=== PATIENT | female | born 1960 | race Caucasian/White ===

== ENCOUNTER 2018-05-03 07:09 | Emergency (ER) | payer OTHER ==
[2018-05-03] MEDS ORDERED: diazePAM 5 MG TABLET PO ONE (07:19)
[2018-05-03] MEDS ORDERED: KETOROLAC TROMETHAMINE 30 MG/1 ML VIAL IM ONE (07:19)
--- NOTE | 2018-05-03 07:19 | PDOC ---
History of Present Illness - General Chief Complaint: Pain Stated Complaint: LOWER BACK PAIN Time Seen by Provider: 05/03/18 07:17 History Source: Patient Exam Limitations: No Limitations - History of Present Illness Initial Comments: 05/03/18 07:54 57 yo F with h/o htn hypothyroid here with c/o low renée pain h/o scoliosis. had a slip and fall 3 days ago while walking. landed on her bottom. the worked at [employer] all day on day following. c/o sharp shooting pain, radiation down left leg. has had back pain in past. no f/c no urinary sxs. no new weakness or numbness. worse with bending. did have associated n/v secondary to pain has had kidney stones in the past, not similar to stone pain. Past History - Past Medical History Allergies/Adverse Reactions: Allergies Allergy/AdvReac Type Severity Reaction Status Date / Time No Known Allergies Allergy Verified 05/03/18 07:11 Home Medications: Ambulatory Orders Diazepam [Valium] 5 mg PO Q8H PRN #10 tablet MDD 3 05/03/18 Levothyroxine [Synthroid -] 75 mcg PO DAILY 05/03/18 Metoprolol Succinate [Toprol Xl] 100 mg PO DAILY 05/03/18 Oxycodone HCl/Acetaminophen [Percocet 5-325 mg Tablet] 1 tab PO Q4H PRN #10 tablet MDD 6 05/03/18 Pantoprazole Sodium [Protonix] 40 mg PO DAILY 05/03/18 Review of Systems - Review of Systems Constitutional: No: Chills, Diaphoresis, Fever HEENTM: No: Eye Pain Respiratory: No: Cough, Shortness of Breath Cardiac (ROS): No: Chest Pain Musculoskeletal: Yes: Back Pain All Other Systems: Reviewed and Negative *Physical Exam - Physical Exam General Appearance: Yes: Appropriately Dressed Neck: positive: Trachea midline Respiratory/Chest: positive: Lungs Clear, Normal Breath Sounds Cardiovascular: positive: Regular Rhythm, Regular Rate, S1, S2 Gastrointestinal/Abdominal: positive: Normal Bowel Sounds. negative: Tender Musculoskeletal: positive: Normal Inspection, Other (lower paraspinal muscle spasm lumbosacral region, no midline spinal v tenderness. ). negative: Vertebral Tenderness Extremity: positive: Normal Capillary Refill Integumentary: positive: Normal Color, Dry, Warm Neurologic: positive: Fully Oriented, Alert Medical Decision Making - Medical Decision Making 05/03/18 07:17 57 yo F with low back pain . worse with movememt. normal nuerological exam. plan nsaids, muscle relaxers reassess. 05/03/18 07:59 05/03/18 08:27 Patient feeling much improved following Percocet and Valium and Toradol. An bleeding without difficulty. X-rays are negative for acute fracture does show severe scoliosis. Patient given outpatient referral for neurologist Dr. Ashlie Schofield and referred back to her primary physician Dr. [facility] prescription for Percocet total of 10 and Valium total 10 told to return for any new weakness numbness or tingling given worked up for 3 days *DC/Admit/Observation/Transfer Diagnosis at time of Disposition: Low back strain - Discharge Dispostion Disposition: HOME Condition at time of disposition: Improved - Prescriptions Prescriptions: Diazepam [Valium] 5 mg PO Q8H PRN #10 tablet MDD 3 PRN Reason: Pain Oxycodone HCl/Acetaminophen [Percocet 5-325 mg Tablet] 1 tab PO Q4H PRN #10 tablet MDD 6 PRN Reason: Pain - Referrals Referrals: Edwar Flores MD [Staff Physician] - Asad Ortiz MD [Staff Physician] - - Patient Instructions Printed Discharge Instructions: Back Pain (Alternative Therapy), Scoliosis- Adult Additional Instructions: He can take naproxen 500 mg up to twice daily for pain. Take Valium 5 mg every 8 hours as needed for muscle spasm. Take Percocet 1 every 4-6 hours as needed for severe pain not relieved by naproxen return for any new weakness numbness or tingling. He should also follow up with a spine surgeon see referral information for Dr. Flores and referral information for a neurologist Dr. Ortiz do not drink alcohol or drive after taking Valium. Return for any problems or concerns - Post Discharge Activity Forms/Work/School Notes: Back to Work
[2018-05-03 07:22] VITALS: BP 93/63; PULSE 94; TEMP 98.8; BMI 26.2
[2018-05-03] MEDS ORDERED: KETOROLAC TROMETHAMINE 30 MG/1 ML VIAL ONE (07:24)
[2018-05-03] MEDS ORDERED: diazePAM 5 MG TABLET ONE (07:24)
== END 2018-05-03 08:51 | disposition home or self-care (01) ==
LOC: FER 07:09
PROC: 3E0233Z Introduction of Anti-inflammatory into Muscle, Percutaneous Approach (ICD-10-PCS; principal; 2018-05-03)
DX: S39.012A Strain of muscle, fascia and tendon of lower back, initial encounter (principal); X58.XXXA Exposure to other specified factors, initial encounter; Y93.89 Activity, other specified; Y92.9 Unspecified place or not applicable; I10 Essential (primary) hypertension; E03.9 Hypothyroidism, unspecified; M41.9 Scoliosis, unspecified; G89.29 Other chronic pain
CPT/HCPCS: 72100-TC-FY; 99282-25

== ENCOUNTER 2020-06-13 05:07 | Day surgery (SDC) | payer OTHER ==
[2020-06-12 13:58] VITALS: BMI 21.2
--- OUTSIDE RECORDS SUMMARY | 2020-06-13 05:13 | XMS ---
:1960 [facility] Care Team Providers Name Role Phone Roni Warner MD Unavailable Unavailable Androne, Praful C Unavailable Androne, C Unavailable Androne, C Unavailable Androne, C Unavailable Androne, C Unavailable Androne, C Unavailable Androne, C Unavailable Androne, C Unavailable MD Meghna Unavailable Unavailable Re-disclosure Warning The records that you are about to access may contain information from federally- assisted alcohol or drug abuse programs. If such information is present, then the following federally mandated warning applies: This information has been disclosed to you from records protected by federal confidentiality rules (42 CFR part 2). The federal rules prohibit you from making any further disclosure of this information unless further disclosure is expressly permitted by the written consent of the person to whom it pertains or as otherwise permitted by 42 CFR part 2. A general authorization for the release of medical or other information is NOT sufficient for this purpose. The Federal rules restrict any use of the information to criminally investigate or prosecute any alcohol or drug abuse patient.The records that you are about to access may contain highly sensitive health information, the redisclosure of which is protected by Article 27-F of the [facility] Public Health law. If you continue you may haveaccess to information: Regarding HIV / AIDS; Provided by facilities licensed or operated by the [facility] Office of Mental Health; or Provided by the [facility] Office for People With Developmental Disabilities. If such information is present, then the following [facility] mandated warning applies: This information has been disclosed to you from confidential records which are protected by state law. State law prohibits you from making any further disclosure of this information without the specific written consent of the person to whom it pertains, or as otherwise permitted by law. Any unauthorized further disclosure in violation of state law may result in a fine or retirement sentence or both. A general authorization for the release of medical or other information is NOT sufficient authorization for further disclosure. Advance Directives Directive Description Technical Supervisor Safekeeping Clerk Status Observation Data S ource(s) Description Advance No completed [facility] Advance No completed [facility] Allergies and Adverse Reactions Type Description Substance Reaction Status Data Source(s ) Drug allergy No Known Allergies No Known NO KNOWN ALLERG Jorge Franklin Allergies [place] [facility] Encounters Encounter Providers Location Date Indications Data Source(s ) Attender: Praful 06/07/2020 [facility] ([facility] 12:00:00 AM EDT [facility]) Office Attender: Praful Arizmendi 06/07/2020 12:00:00 AM EDT [facility] ([facility] Office Attender: Praful Arizmendi 06/07/2020 12:00:00 AM EDT [facility] ([facility] Office Attender: Praful Arizmendi 06/07/2020 12:00:00 AM EDT [facility] ([facility] Office Attender: Praful Arizmendi 06/07/2020 12:00:00 AM EDT [facility] ([facility]) Office Outpatient Attender: Roni 10/25/2019 01:30:00 GANGLION O F RIGHT Jorge Warner MD PM EST - 10/25/2019 [facility] 09:16:00 AM EST GANGLION OF RIGHT WRIST Patient discharged. Outpatient Attender: Stacey 10/21/2019 01:53:00 10/25 SHAYY Coffman MD PM EST REMOVAL RT Hospital GANGLION CYST 10/25 DANAE REMOVAL RT GANGLION CYST Functional Status Immunizations Vaccine Date Status Description Data Source(s) New in 2011. IIV4 07/28/2018 12:00:00 completed [facility] ([facility]) Medications Medication Brand Start Product Dose Route Administrative Pharmacy [facility] Indications Reaction Description Data Name Date Form Instructions Instructions Source(s) atorvastati ATORVA 05/30/ TABLET 30 complet ATOR VASTATIN [facility] (St n 40 MG STATIN 2019 ed [facility] Oral Tablet :03672 12:00: [facility]i [facility], ATORVASTATI 1 00 AM PC) N:712079 EDT thyroid THYROI 05/30/ TABLET 180 complet THYROID [facility] (St (FDC) 65 MG D 2019 ed DESICCATED Angella [facility] Oral Tablet DESICC 12:00: [facility]i cliff, THYROID ATED:3 00 AM PC) DESICCATED: 21755 EDT 960551 24 HR METOPR 05/30/ TABLET, 30 complet METOPROLO L [facility] (St metoprolol OLOL:8 2019 EXTENDED ed Dane n's succinate 22036 12:00: RELEASE Medi cliff, 100 MG 00 AM PC) Extended EDT Release Oral Tablet METOPROLOL: 629168 Sucralfate CARAFA 04/03/ TABLET 90 complet CARAF ATE [facility] (St 1000 MG TE:208 2019 ed [facility] Oral Tablet 097 12:00: Medica l, [Carafate] 00 AM PC) CARAFATE:20 EDT 8097 lamotrigine LAMOTR 02/02/ TABLET 60 complet LAMO TRIGINE [facility] (St 25 MG Oral IGINE: 2019 ed [facility] Tablet 876641 12:00: Medical, LAMOTRIGINE 00 AM PC) :612068 EDT liothyronin LIOTHY /08/ TABLET 90 complet LIOT HYRONINE [facility] (St e sodium RONINE 2019 ed [facility] 0.05 MG :84896 12:00: Medical, Oral Tablet 3 00 AM PC) LIOTHYRONIN EDT E:[id number] Glucosamine CAPSULE ORAL active [facility] Sulfate/[facility] [place] 250-250 Mg Hospital Cap* Sucralfate Sucral TABLET 2 g ORAL active Whi te 1000 MG fate [place] Oral Tablet Hospital [Carafate] Ross-3-Aci CAPSULE ORAL active Whi te d Ethyl [place] atorvastati Atorva TABLET 40 mg ORAL active W jeanne n 40 MG statin [place] Oral Tablet [facility] [Lipitor] m Atorvastati n Calcium thyroid Thyroi TABLET 1 ORAL active [facility] (FDC) 130 d,Pork {Caps [place] MG Oral ule} Hospital Tablet [Nature-Thr oid] Thyroid,Por k lamotrigine Lamotr TABLET 50 mg ORAL active W jeanne 25 MG Oral igine [place] Tablet Hospital [Lamictal] Lamotrigine Ascorbic Ascorb TABLET ORAL active [facility] Acid 500 MG ic [place] Oral Tablet Acid Hospital liothyronin Liothy TABLET 50 ug ORAL active W jeanne e sodium ronine [place] 0.05 MG Sodium Hospital Oral Tablet [Cytomel] Liothyronin e Sodium 24 HR Metopr CONTROLL 100 ORAL active White metoprolol olol ED mg [place] succinate Succin RELEASE Hospi sveta 100 MG ate TABLET Extended Release Oral Tablet [Toprol] Metoprolol Succinate Insurance Providers Payer name Policy type Policy ID Covered Covered libertarian's Policy P vilma / Coverage libertarian ID relationship to Hussein Inf ormation type hussein HIP MEDICAID [id number] SP [id number] [place] [id number] 1 [id number] [facility] [id number] HIP PAULA [id number] PT [id number] [id number] PT AEN [id number] [facility] [id number] PT AEN [id number] HIP MEDICAID [id number] SP [id number] Problems, Conditions, and Diagnoses Code Display Name Description Problem Type Effective Data Sour ce(s) Dates M21.611 Bunion of right BUNION OF RIGHT Problem 06/07/2020 MEDG EN (St foot FOOT 12:00:00 AM [facility], ) Z01.818 Encounter for other ENCOUNTER FOR Problem 06/07/2020 ME D[facility] (St preprocedural OTHER 12:00:00 AM [facility] examination PREPROCEDURAL EDT Medical, P C) EXAMINATION N20.0 Calculus of kidney CALCULUS OF KIDNEY Problem 0 MED[facility] (St 12:00:00 AM [facility] ) N23 Unspecified renal UNSPECIFIED RENAL Problem 01/02/2020 [facility] (St colic COLIC 12:00:00 AM [facility], ) K21.9 Gastro-esophageal GASTRO-ESOPHAGEAL Problem 07/28/2018 [facility] (St reflux disease REFLUX DISEASE 12:00:00 AM [facility] without esophagitis WITHOUT EDT Medic al, ) ESOPHAGITIS E78.5 Hyperlipidemia, HYPERLIPIDEMIA, Problem 09/30/2017 MEDG EN (St unspecified UNSPECIFIED 12:00:00 AM [facility], ) G43.909 Migraine, MIGRAINE, Problem 09/30/2017 MED[facility] (St unspecified, not UNSPECIFIED, NOT 12:00:00 AM [facility] intractable, INTRACTABLE, EST Medical, P C) without status WITHOUT STATUS migrainosus MIGRAINOSUS F31.9 Bipolar disorder, BIPOLAR DISORDER, Problem 09/30/2017 MED[facility] (St unspecified UNSPECIFIED 12:00:00 AM [facility], ) I10 Essential (primary) ESSENTIAL Problem 09/30/2017 MEDGE N (St hypertension (PRIMARY) 12:00:00 AM [facility] HYPERTENSION [facility], ) E03.9 Hypothyroidism, HYPOTHYROIDISM, Problem 09/30/2017 MEDG EN (St unspecified UNSPECIFIED 12:00:00 AM [facility], ) Surgeries/Procedures Procedure Description Date Indications Data Source(s) Documentation of current 06/07/2020 [facility] ([facility] medications (procedure) 12:00:00 AM [facility], ) EDT Documentation of current 06/07/2020 [facility] ([facility] medications (procedure) 12:00:00 AM [facility], ) EDT Documentation of current 06/07/2020 [facility] ([facility] medications (procedure) 12:00:00 AM [facility], ) EDT Documentation of current 06/07/2020 [facility] ([facility] medications (procedure) 12:00:00 AM [facility], ) EDT OFFICE OUTPATIENT VISIT 25 06/07/2020 M EDGEN ([facility] MINUTES 12:00:00 AM Medical, PC) EDT ECG ROUTINE ECG W/LEAST 12 LDS 06/07/2020 [facility] ([facility] W/I&R 12:00:00 AM Medical, PC) EDT Documentation of current 01/02/2020 MED [facility] ([facility] medications (procedure) 12:00:00 AM [facility] ) EDT Documentation of current 01/02/2020 MED [facility] ([facility] medications (procedure) 12:00:00 AM [facility] ) EDT Documentation of current 01/02/2020 [facility] ([facility] medications (procedure) 12:00:00 AM [facility] ) EDT Documentation of current 01/02/2020 [facility] ([facility] medications (procedure) 12:00:00 AM [facility] ) EDT PHYSICIAN TELEPHONE EVALUATION 01/02/2020 [facility] ([facility] 11-20 MIN 12:00:00 AM Medical, PC) EDT Oxygen therapy (procedure) 10/25/2019 W jeanne [place] 12:00:00 AM Hospital EST Electrocardiographic procedure 10/21/2019 [place] (procedure) 12:00:00 AM Hospital EST Electrocardiogram tracing 10/21/2019 [facility] [place] 12:00:00 AM Hospital EST Office/outpatient visit est 10/21/2019 [place] 12:00:00 AM Hospital EST Documentation of current 10/11/2019 MED [facility] ([facility] medications (procedure) 12:00:00 AM [facility] ) EST Documentation of current 10/11/2019 [facility] ([facility] medications (procedure) 12:00:00 AM [facility] ) EST Documentation of current 10/11/2019 [facility] ([facility] medications (procedure) 12:00:00 AM [facility] ) EST Documentation of current 10/11/2019 [facility] ([facility] medications (procedure) 12:00:00 AM [facility] ) EST Documentation of current 10/11/2019 [facility] ([facility] medications (procedure) 12:00:00 AM [facility] ) EST Documentation of current 10/11/2019 [facility] ([facility] medications (procedure) 12:00:00 AM [facility] ) EST Documentation of current 10/11/2019 [facility] ([facility] medications (procedure) 12:00:00 AM [facility], PC) EST Documentation of current 10/11/2019 [facility] ([facility] medications (procedure) 12:00:00 AM [facility], PC) EST Documentation of current 10/11/2019 [facility] ([facility] medications (procedure) 12:00:00 AM [facility], PC) EST Documentation of current 10/11/2019 [facility] ([facility] medications (procedure) 12:00:00 AM [facility], PC) EST Documentation of current 10/11/2019 [facility] ([facility] medications (procedure) 12:00:00 AM [facility], PC) EST Documentation of current 10/11/2019 [facility] ([facility] medications (procedure) 12:00:00 AM [facility], PC) EST Documentation of current 10/11/2019 [facility] ([facility] medications (procedure) 12:00:00 AM [facility], PC) EST Documentation of current 10/11/2019 [facility] ([facility] medications (procedure) 12:00:00 AM [facility], PC) EST Documentation of current 10/11/2019 [facility] ([facility] medications (procedure) 12:00:00 AM [facility], PC) EST Documentation of current 10/11/2019 [facility] ([facility] medications (procedure) 12:00:00 AM [facility], PC) EST Documentation of current 10/11/2019 [facility] ([facility] medications (procedure) 12:00:00 AM [facility], PC) EST Documentation of current 10/11/2019 [facility] ([facility] medications (procedure) 12:00:00 AM [facility], PC) EST Documentation of current 10/11/2019 [facility] ([facility] medications (procedure) 12:00:00 AM [facility], PC) EST Documentation of current 10/11/2019 [facility] ([facility] medications (procedure) 12:00:00 AM [facility], PC) EST OFFICE OUTPATIENT VISIT 15 10/11/2019 Omero BLEDSOE ([facility] MINUTES 12:00:00 AM [facility], ) EST Documentation of current 02/03/2019 MED [facility] ([facility] medications (procedure) 12:00:00 AM Medi cliff, PC) EDT Documentation of current 02/03/2019 [facility] ([facility] medications (procedure) 12:00:00 AM [facility], ) EDT Documentation of current 02/03/2019 [facility] ([facility] medications (procedure) 12:00:00 AM [facility], ) EDT Documentation of current 02/03/2019 [facility] ([facility] medications (procedure) 12:00:00 AM [facility], ) EDT Documentation of current 02/03/2019 [facility] ([facility] medications (procedure) 12:00:00 AM [facility], ) EDT Documentation of current 02/03/2019 [facility] ([facility] medications (procedure) 12:00:00 AM [facility], ) EDT OFFICE OUTPATIENT VISIT 25 02/03/2019 Omero BLEDSOE ([facility] MINUTES 12:00:00 AM [facility], ) EDT Documentation of current 07/28/2018 [facility] ([facility] medications (procedure) 12:00:00 AM [facility], ) EDT Documentation of current 07/28/2018 [facility] ([facility] medications (procedure) 12:00:00 AM [facility], ) EDT Documentation of current 07/28/2018 [facility] ([facility] medications (procedure) 12:00:00 AM [facility], ) EDT OFFICE OUTPATIENT VISIT 15 07/28/2018 Omero BLEDSOE ([facility] MINUTES 12:00:00 AM Medical, ) EDT INFLUENZA VACCINE 07/28/2018 [facility] ([facility] 12:00:00 AM Medical, PC) EDT IMADM PRQ ID SUBQ/IM NJXS 1 07/28/2018 [facility] ([facility] VACCINE 12:00:00 AM Medical, ) EDT Documentation of current 03/03/2018 [facility] ([facility] medications (procedure) 12:00:00 AM [facility], ) EDT Documentation of current 03/03/2018 [facility] ([facility] medications (procedure) 12:00:00 AM [facility], ) EDT OFFICE OUTPATIENT VISIT 15 03/03/2018 Omero RAKAN ([facility] MINUTES 12:00:00 AM Medical, PC) EDT Documentation of current 09/30/2017 [facility] ([facility] medications (procedure) 12:00:00 AM [facility], ) EST Documentation of current 09/30/2017 [facility] ([facility] medications (procedure) 12:00:00 AM [facility], ) EST Documentation of current 09/30/2017 [facility] ([facility] medications (procedure) 12:00:00 AM [facility]i [facility], PC) EST OFFICE OUTPATIENT VISIT 15 09/30/2017 Omero BLEDSOE ([facility] MINUTES 12:00:00 AM Medical, PC) EST Colonoscopy (procedure) 06/28/2017 [facility] EN ([facility] 12:00:00 AM Medical, ) EDT Mammogram (procedure) 05/15/2017 [facility] ([facility] 12:00:00 AM Medical, ) EDT Results ID Date Data Source [id number] 06/08/2020 02:25:00 PM EDT [facility] Name Value Range Interpretation Description Data Sup porting Code Source(s) Document(s ) SARS [facility] coronavirus 2 RNA This lab was ordered by [facility] and reported by [facility]. Procedure Social History Code Duration Value Status Description Data Source(s ) Smoking 06/07/2020 Marital Status completed Marital Status MED[facility] (St 12:00:00 AM [facility], EDT Members 3 Lives Members 3 Lives PC) Independently Yes Independently Yes Number of Children Number of Childre n 2 sons Occupation 2 sons Occupation nurse Tobacco nurse Tobacco Status: Former Status: Former smoker Tobacco smoker Tobacco details: details: Cigarettes Smoking Cigarettes Smokin g History: 10-15 History: 10-15 Years Daily Years Daily Smokin Pack Smokin Pack Smoking Stop Date: Smoking Stop Date : 2015..2015 Diet and Exercise Well Balanced Diet Daily or Most days Exercise Frequency Other (to start) Alcohol Use Alcohol Use None Substance Use Substance Use Denies Use Mental Health History Mental History Other (bipolar, highly functional) Sexual History Currently sexually active No Sees GI Dr. Torrey Quan for chronic heartburn Smoking 06/07/2020 Former smoker completed Former smoker [facility] ( St 12:00:00 AM [facility] Smoking Unknown if ever completed Unknown if ever [facility] [place] smoked smoked Hospital Vital Signs ID Date Data Source UNK Name Value Range Interpretation Code Description Data Source(s) Heart rate 72 /min 72 /min [facility] ([facility] , ) Respiratory rate 14 /min 14 /min [facility] ( [facility] , ) Body mass index 22.3 kg/m2 22.3 kg/m2 [facility] (S t (BMI) [Ratio] [facility], ) Diastolic blood 90 mm[Hg] 90 mm[Hg] [facility] (S t pressure [facility] [place]) Systolic blood 132 mm[Hg] 132 mm[Hg] [facility] ([facility]) Body weight 126 lb 126 lb [facility] Body height [address] [facility] ([facility]) Diastolic blood 63 mm[Hg] 63 mm[Hg] [facility] Systolic blood 97 mm[Hg] 97 mm[Hg] [facility] Respiratory rate 16 /min 16 /min [facility] Heart rate 52 /min 52 /min [facility] Body temperature 36.13536 36.69447 [facility] Body temperature 98.3 [degF] 98.3 [degF] [facility] Body mass index 23.0 kg/m2 23.0 kg/m2 [facility] (BMI) [Ratio] Hospital Body weight 130 [lb_av] 130 [lb_av] [facility] Heart rate 66 /min 66 /min [facility] Respiratory rate 14 /min 14 /min [facility] Body temperature 97.3 F 97.3 F [facility] Inhaled oxygen 97 % 97 % [facility] ([facility], ) Body mass index 22.3 kg/m2 22.3 kg/m2 MED[facility] (S t (BMI) [Ratio] [facility], ) Diastolic blood 62 mm[Hg] 62 mm[Hg] [facility] (S t pressure [facility] [place]) Systolic blood 108 mm[Hg] 108 mm[Hg] [facility] ([facility]) Body weight 129 lb 129 lb [facility] ([facility]) Body height 63.75 in 63.75 in [facility] Heart rate 82 /min 82 /min [facility] ([facility]) Respiratory rate 15 /min 15 /min [facility] ( [facility]) Body mass index 23.9 kg/m2 23.9 kg/m2 [facility] (S t (BMI) [Ratio] [facility], ) Diastolic blood 72 mm[Hg] 72 mm[Hg] [facility] (S t pressure [facility] , ) Systolic blood 140 mm[Hg] 140 mm[Hg] [facility] ([facility] , ) Body weight 138 lb 138 lb [facility] ([facility]) Body height 63.75 in 63.75 in [facility] ([facility]) Heart rate 82 /min 82 /min [facility] ([facility]) Respiratory rate 16 /min 16 /min [facility] ( [facility]) Body mass index 24.4 kg/m2 24.4 kg/m2 MED[facility] (S t (BMI) [Ratio] [facility], ) Diastolic blood 84 mm[Hg] 84 mm[Hg] [facility] (S t pressure [facility] , ) Systolic blood 128 mm[Hg] 128 mm[Hg] [facility] ([facility] , ) Body weight 141 lb 141 lb [facility] ([facility]) Body height 63.75 in 63.75 in [facility] ([facility]) Heart rate 64 /min 64 /min [facility] ([facility]) Respiratory rate 16 /min 16 /min [facility] ( [facility]) Body mass index 24.6 kg/m2 24.6 kg/m2 [facility] (S t (BMI) [Ratio] [facility], ) Diastolic blood 62 mm[Hg] 62 mm[Hg] [facility] (S t pressure [facility] , ) Systolic blood 108 mm[Hg] 108 mm[Hg] [facility] ([facility] , ) Body weight 142 lb 142 lb [facility] ([facility]) Body height 63.75 in 63.75 in [facility] ([facility]) Heart rate 82 /min 82 /min [facility] ([facility]) Respiratory rate 15 /min 15 /min [facility] ( [facility]) Body mass index 26.1 kg/m2 26.1 kg/m2 [facility] (S t (BMI) [Ratio] [facility], ) Diastolic blood 82 mm[Hg] 82 mm[Hg] [facility] (S t pressure [facility] , ) Systolic blood 126 mm[Hg] 126 mm[Hg] [facility] ([facility] , ) Body weight [address] [facility] ([facility] , ) Body height 63.[address] [facility] ([facility] , )
[2020-06-13] MEDS ORDERED: BUPIVACAINE HCL 100 ML ONE (11:14)
[2020-06-13] MEDS ORDERED: LIDOCAINE HCL 1%, 10 MG/ML (20ML VIAL) ONE (11:14)
[2020-06-13] MEDS ORDERED: DEXAMETHASONE SOD PHOSPHATE 4 MG/1 ML VIAL ONE (11:14)
[2020-06-13] MEDS ORDERED: PROPOFOL 20 ML ONE ×2 (11:38)
[2020-06-13] MEDS ORDERED: MIDAZOLAM HCL 2 MG/2 ML SINGLE DOSE VIAL ONE (11:38)
[2020-06-13] MEDS ORDERED: ceFAZolin SODIUM 1 GM VIAL IVPB ONE (12:15)
[2020-06-13 14:22] VITALS: BP 134/89; PULSE 86; TEMP 97.5
--- NOTE | 2020-06-15 11:49 | PATH ---
Surgical Pathology Report Patient Name: LISA BINGHAM [facility]. Rec. #: [id number] /Age/Gender: 1960 (Age: 59) / F Account: [id number] Location: [facility] SUR[facility] Taken: 06/13/2020 Received: 06/14/2020 Reported: 06/15/2020 Physicians: Jordan Duenas DPM Specimen(s) Received BONE FROM RIGHT FOOT Clinical History Bunion right foot Final Diagnosis BONE, FOOT, RIGHT, JB BUNIECTOMY: BONE WITH FATTY MARROW AND SYNOVIUM. Electronically Signed By Marysol Delong M.D. Gross Description Received in formalin labeled "bone from right foot" regular fragments of white-villalobos measuring 1.8 x 1 x 0.4 and 2.2 x 1.8 x 0.2 cm. Computer Discovery Teacher sections are submitted after decalcification one cassette. MLSZ/06/14/2020 sanml/06/14/2020
== END 2020-06-13 14:45 | disposition home or self-care (01) ==
LOC: JASU-SURG 05:07
PROVIDERS: ATTEND Podiatrist
PROC: 0QBQ0ZZ Excision of Right Toe Phalanx, Open Approach (ICD-10-PCS; principal; 2020-06-13 12:00)
PROC: 0QBN0ZZ Excision of Right Metatarsal, Open Approach (ICD-10-PCS; 2020-06-13 12:00)
DX: M20.11 Hallux valgus (acquired), right foot (principal); M21.611 Bunion of right foot
CPT/HCPCS: 88304-TC; 88311-TC

== ENCOUNTER 2021-06-13 19:52 | Emergency (ER) | payer OTHER ==
[2021-06-13 20:07] VITALS: PULSE 104; TEMP 97.9; BMI 21.0
[2021-06-13] MEDS ORDERED: SUMATRIPTAN SUCCINATE 6 MG/0.5 ML VIAL ONE (20:27)
[2021-06-13] MEDS ORDERED: METOCLOPRAMIDE HCL 10 MG TABLET (FP) PO ONE ×2 (20:27→20:28)
[2021-06-13] MEDS ORDERED: diphenhydrAMINE HCL 25 MG CAPSULE (FP) PO ONE ×2 (20:28→20:30)
[2021-06-13] MEDS ORDERED: SUMATRIPTAN SUCCINATE 6 MG/0.5 ML VIAL SQ ONE (20:28)
[2021-06-13 20:58] VITALS: BP 174/109
== END 2021-06-13 21:09 | disposition home or self-care (01) ==
LOC: FER 19:52
DX: R51.9 Headache, unspecified (principal); I10 Essential (primary) hypertension
CPT/HCPCS: 99284-25

== ENCOUNTER 2022-04-21 05:27 | Day surgery (SDC) | payer OTHER ==
[2022-04-16 17:04] VITALS: BMI 22.8
[2022-04-21 06:49] VITALS: RESP 20
[2022-04-21] MEDS ORDERED: LIDOCAINE HCL 2% (20ML MULTI-DOSE VIAL) ONE (07:06)
[2022-04-21] MEDS ORDERED: BUPIVACAINE HCL/PF 0.5% (5MG/ML) 10 ML VIAL ONE (07:06)
[2022-04-21] MEDS ORDERED: DEXAMETHASONE SOD PHOSPHATE 4 MG/1 ML VIAL ONE (07:06)
[2022-04-21] MEDS ORDERED: ceFAZolin SODIUM 1 GM VIAL IVPB ONE (07:25)
[2022-04-21] MEDS ORDERED: MIDAZOLAM HCL 2 MG/2 ML SINGLE DOSE VIAL ONE ×4 (07:30→07:59)
[2022-04-21] MEDS ORDERED: PROPOFOL 20 ML ONE ×2 (07:39)
[2022-04-21] MEDS ORDERED: BUPIVACAINE HCL/PF 0.5% (5MG/ML) 10 ML VIAL IJ ONE (08:27)
[2022-04-21] MEDS ORDERED: LIDOCAINE HCL 2% (50ML VIAL) INF ONE (08:28)
[2022-04-21] MEDS ORDERED: DEXAMETHASONE SOD PHOSPHATE 4 MG/1 ML VIAL IVPUSH ONE (08:33)
[2022-04-21 10:58] VITALS: PULSE 78
[2022-04-21 11:10] VITALS: BP 112/70; TEMP 97.6
== END 2022-04-21 10:15 | disposition home or self-care (01) ==
LOC: JASU-SURG 05:27
PROVIDERS: ATTEND Podiatrist
PROC: 0SRQ0JZ Replacement of Left Toe Phalangeal Joint with Synthetic Substitute, Open Approach (ICD-10-PCS; principal; 2022-04-21 07:30)
DX: M20.42 Other hammer toe(s) (acquired), left foot (principal)
CPT/HCPCS: 88302-TC; 88304-TC; 88311-TC